=== PATIENT | male | born 1985 | race Caucasian/White ===

== ENCOUNTER 2020-09-06 15:37 | Observation (INO) | payer BC ==
[~2020-09-06] VITALS: Ht 170.2 cm; Wt 77.1 kg
[~2020-09-06 15:37] MED LIST: DEXT1CAP PO; DIVA500T2 PO; FOLI1TAB16 PO; THIA100T22 PO
[2020-09-06 16:05] LABS: BASO % 1 % (0-3); EOS % 0 % (0-3); HEMOGLOBIN 14.3 g/dL (13.0-17.5); LYMPH # 1.5 x10^3/uL (1.0-4.8); LYMPH % 24 % (24-48); MEAN CORPUSCULAR HEMOGLOBIN 33 pg (25-35); MEAN CORPUSCULAR HGB CONC 34 g/dL (31-37); MEAN CORPUSCULAR VOLUME 96 fL (79-100); MONO # 0.4 x10^3/uL (0.0-1.1); MONO % 7 % (0-9); NEUT # 4.1 x10^3/uL (1.8-7.7); NEUT % 67 % (31-73); PLATELET COUNT 313 x10^3/uL (140-400); RED CELL DISTRIBUTION WIDTH 12.9 % (11.5-14.5); WHITE BLOOD COUNT 6.1 x10^3/uL (4.0-11.0)
[2020-09-06 16:19] LABS: ANION GAP 16 (6-14); BLOOD UREA NITROGEN 12 mg/dL (8-26); BUN/CREATININE RATIO 12 (6-20); CALCIUM 9.1 mg/dL (8.5-10.1); CARBON DIOXIDE 22 mmol/L (21-32); CHLORIDE 108 mmol/L (98-107); GLUCOSE 107 mg/dL (70-99); SODIUM 146 mmol/L (136-145)
--- NOTE | 2020-09-06 16:23 | PHYS DOC ---
Past Medical History Past Medical History: Seizure Additional Past Medical Histor: TBI, (SURESHRAQUEL M DISTILLERY MILLER) Past Surgical History: Other Additional Past Surgical Histo: CRICH (SURESHRAQUEL DISTILLERY MILLER) Smoking Status: Never Smoker Alcohol Use: Occasionally Drug Use: Marijuana (SURESHRAQUEL DISTILLERY MILLER) General Adult EDM: Chief Complaint: SEIZURE HPI: HPI: Patient is a 34 year old male who presents with brought in by EMS for seizure. Witnessed by father. Patient has a history of a TBI seizures and states he takes his Depakote every morning. Patient states that he has a seizure about every 6 months. The father states that he has a seizure about once a year. EMS states there was a lot of drug paraphernalia and open alcohol containers in the house. Patient denies use. Patient did urinate on himself. Patient is a poor historian. Patient states it is 2019 and he thinks is just about November. EMS nor we are aware of his normal mental status. He is alert and oriented to self. Patient states he is feeling fine and he is actually ready to go home. He denies any pain, headache, and nausea, vomiting, dizziness, abdominal pain, neck pain, vision changes, numbness or tingling, chest pain, shortness of air, recent illness, fevers. He states he does not think he hit his head. It is unclear if he fell or was going down when he had a seizure. (SARAHRAQUEL DISTILLERY MILLER) Review of Systems: Review of Systems: Constitutional: Denies fever or chills. [] Eyes: Denies change in visual acuity. [] HENT: Denies nasal congestion or sore throat. [] Respiratory: Denies cough or shortness of breath. [] Cardiovascular: Denies chest pain or edema. [] GI: Denies abdominal pain, nausea, vomiting, bloody stools or diarrhea. [] : Denies dysuria. [] Musculoskeletal: Denies back pain or joint pain. [] Integument: Denies rash. [] Neurologic: Denies headache, focal weakness or sensory changes. +Seizure[] Endocrine: Denies polyuria or polydipsia. [] Lymphatic: Denies swollen glands. [] Psychiatric: Denies depression or anxiety. [] (RAQUEL PRINCE DISTILLERY MILLER) Heart Score: Risk Factors: Risk Factors: DM, Current or recent (<one month) smoker, HTN, HLP, family history of CAD, obesity. Risk Scores: Score 0 - 3: 2.5% MACE over next 6 weeks - Discharge Home Score 4 - 6: 20.3% MACE over next 6 weeks - Admit for Clinical Observation Score 7 - 10: 72.7% MACE over next 6 weeks - Early Invasive Strategies (RAQUEL PRINCE APRN) Current Medications: Current Medications Medications (Trade) Dose Ordered Sig/Aakash Start Time Stop Time Status Last Admin Dose Admin Sodium Chloride 1,000 ml @ 1,000 mls/hr 1X ONCE 09/06/20 16:30 09/06/20 17:29 (RAQUEL PRINCE APRN) Allergies: Allergies: Allergies Coded Allergies Type Severity Reaction Last Updated Verified No Known Drug Allergies 09/05/18 No (RAQUEL PRINCE APRN) Physical Exam: PE: Constitutional: Well developed, well nourished, no acute distress, non-toxic appearance. [] HENT: Normocephalic, atraumatic, bilateral external ears normal, oropharynx moist, no oral exudates, nose normal. [] Eyes: PERRLA, EOMI, conjunctiva normal, no discharge. [] Neck: Normal range of motion, no tenderness, supple, no stridor. [] Cardiovascular:Heart rate regular rhythm, no murmur [] Lungs & Thorax: Bilateral breath sounds clear to auscultation [] Abdomen: Bowel sounds normal, soft, no tenderness, no masses, no pulsatile masses. [] Skin: Warm, dry, no erythema, no rash. [] Back: No tenderness, no CVA tenderness. [] Extremities: No tenderness, no cyanosis, no clubbing, ROM intact, no edema. [] Neurologic: Alert and oriented X 1, normal motor function, normal sensory function, no focal deficits noted. [] Psychologic: Affect normal, judgement normal, mood normal. [] (RAQUEL PRINCE APRN) Current Patient Data: Labs: Laboratory Tests Test 09/06/20 15:41 White Blood Count 6.1 x10^3/uL (4.0-11.0) Red Blood Count 4.40 x10^6/uL (4.30-5.70) Hemoglobin 14.3 g/dL (13.0-17.5) Hematocrit 42.0 % (39.0-53.0) Mean Corpuscular Volume 96 fL (79-100) Mean Corpuscular Hemoglobin 33 pg (25-35) Mean Corpuscular Hemoglobin Concent 34 g/dL (31-37) Red Cell Distribution Width 12.9 % (11.5-14.5) Platelet Count 313 x10^3/uL (140-400) Neutrophils (%) (Auto) 67 % (31-73) Lymphocytes (%) (Auto) 24 % (24-48) Monocytes (%) (Auto) 7 % (0-9) Eosinophils (%) (Auto) 0 % (0-3) Basophils (%) (Auto) 1 % (0-3) Neutrophils # (Auto) 4.1 x10^3/uL (1.8-7.7) Lymphocytes # (Auto) 1.5 x10^3/uL (1.0-4.8) Monocytes # (Auto) 0.4 x10^3/uL (0.0-1.1) Eosinophils # (Auto) 0.0 x10^3/uL (0.0-0.7) Basophils # (Auto) 0.0 x10^3/uL (0.0-0.2) Ethyl Alcohol Level < 10 mg/dL (0-10) Laboratory Tests 09/06/20 15:41 Vital Signs: Vital Signs Date Time Temp Pulse Resp B/P (MAP) Pulse Ox O2 Delivery O2 Flow Rate FiO2 09/06/20 15:38 98.2 90 16 136/85 (102) 94 Room Air 98.2 (RAQUEL PRINCE DISTILLERY MILLER) EKG: EK and read by Sinus Rhythm and no STEMI (RAQUEL PRINCE DISTILLERY MILLER) Radiology/Procedures: Radiology/Procedures: [] Impression: [facility] [address] [place] [address] IMAGING REPORT Signed PATIENT: ALBERTA BARNES ACCOUNT: [id number] : 1985 LOCATION: ER AGE: 34 SEX: M EXAM STATUS: REG ER ORD. PHYSICIAN: RAQUEL PRINCE APRN REASON: seizure, fall PROCEDURE: CT HEAD AND CERVICAL SPINE WO Exam: CT head and cervical spine without contrast INDICATION: Seizure, fall TECHNIQUE: Sequential axial images through the head and cervical spine were obtained without the administration of IV contrast. Comparisons: None FINDINGS: Head: No focal parenchymal lesion or hemorrhage is identified. There is no midline shift or sulcal effacement. Hypodensity in the right frontal lobe favored to be chronic infarct. No acute vascular territory infarction is identified. Elliott-white distinction is preserved. The ventricular system is within normal limits without compression hydrocephalus. The basal cisterns are well maintained. The visualized portions of the paranasal sinuses and mastoid air cells are well- pneumatized. No acute fractures. Cervical spine: Straightening of cervical spine which may positional. Vertebral body heights are well-maintained. Fracture to the cervical spine is not identified. Multilevel spondylotic change in cervical spine with degenerative disc disease greatest at C3-C4. Visualized paraspinal soft tissues are unremarkable. IMPRESSION: 1. No acute intracranial abnormality. 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 2. Negative CT C-spine for acute traumatic injury. Exposure: One or more of the following in the visualized dose reduction techniques were utilized for this examination: 1. Automated exposure control 2. Adjustment of the MA and/or KV according to patient size Use of iterative of reconstructive technique Electronically signed by: Benito Ernandez MD (09/06/2020 5:31 PM) [facility] DICTATED and SIGNED BY: BENITO ERNANDEZ MD DATE: 09/06/20 [id number] (RAQUEL PRINCE APRN) Course & Med Decision Making: Course & Med Decision Making Pertinent Labs and Imaging studies reviewed. (See chart for details) See HPI. Alert and oriented x self. Speaks in full clear sentences. Lungs are clear to auscultation all lobes. Vital signs are within normal limits. Afebrile. No focal bony spinal tenderness. Full range of motion of his neck. Skin pink warm and dry. Abdomen soft and nontender. No extremity swelling, joint laxity, deformities, abrasions, lacerations, bruising. Patient was given 2 L of normal saline in the ER. Nurse spoke to the patient's father who states the patient is alert and oriented x4, therefore the patient is altered. Patient's father states that he did not vomit. Patient's father states that he was found on the floor so the seizure was unwitnessed. Blood work is unremarkable besides a lactic acid being 5.0. CT head and cervical sp ine show no acute findings. There is concern for prolonged postictal state therefore patient will be observed in the hospital. Patient admitted to the hospitalist. [] (RAQUEL PRINCE APRN) Dragon Disclaimer: Dragon Disclaimer: This electronic medical record was generated, in whole or in part, using a voice recognition dictation system. (RAQUEL PRINCE APRN) Departure Departure Impression: Primary Impression: AMS (altered mental status) Qualified Codes: R41.82 - Altered mental status, unspecified Disposition: ADMITTED INPT THIS HOSP Admitting Physician: JENNIFER (RAQUEL PRINCE APRN) Condition: STABLE Referrals: NO PCP (PCP) Attending Signature Attending Signature I have reviewed the PA/CABLE SPOOLER's note and plan of care. I was available for consultation as needed during the patient's visit in the emergency department. I agree with the clinical impression, plan, and disposition. (ALBERTA HEARD DO) RAQUEL PRINCE APRN Sep 06, 2020 16:23 ALBERTA HEARD DO Sep 07, 2020 08:03
[2020-09-06 16:24] LABS: ALBUMIN 3.6 g/dL (3.4-5.0); ALBUMIN/GLOBULIN RATIO 1.1 (1.0-1.7); ALK PHOS 39 U/L (46-116); ALT (SGPT) 31 U/L (16-63); AST (SGOT) 15 U/L (15-37); TOTAL BILIRUBIN 0.3 mg/dL (0.2-1.0); TOTAL PROTEIN 6.9 g/dL (6.4-8.2)
[2020-09-06] MEDS ORDERED: IV NORMAL SALINE 1000ML BAG 1,000 ML IV ONE ×2 (16:30→17:15)
--- NOTE | 2020-09-06 17:13 | EKG ---
[address] [place] [address] Test Date: 2020-09-06 Test Time: 16:12:17 Pat Name: ALBERTA BARNES Department: Room: Gender: M Community Organization Director: : 1985 Requested By: RAQUEL PRINCE Order Number: [id number] Reading MD: Avi Zhou Measurements Intervals [place] Rate: 93 P: 48 IN: 158 QRS: 12 QRSD: 106 T: 43 QT: 346 QTc: 433 Interpretive Statements SINUS RHYTHM NORMAL ECG Electronically Signed On 09-09-2020 10:21:45 MORTGAGE LOAN ASSISTANT by Avi Zhou
--- NOTE | 2020-09-06 17:33 | RAD ---
Exam: CT head and cervical spine without contrast INDICATION: Seizure, fall TECHNIQUE: Sequential axial images through the head and cervical spine were obtained without the admi nistration of IV contrast. Comparisons: None FINDINGS: Head: No focal parenchymal lesion or hemorrhage is identified. There is no midline shift or sulcal effaceme nt. Hypodensity in the right frontal lobe favored to be chronic infarct. No acute vascular territory infa rction is identified. Elliott-white distinction is preserved. The ventricular system is within normal limits without compression hydrocephalus. The basal cisterns are well maintained. The visualized portions of the paranasal sinuses and mastoid air cells are well-pneumatized. No acute fractures. Cervical spine: Straightening of cervical spine which may positional. Vertebral body heights are well-maintained. Fracture to the cervical spine is not identified. Multilevel spondylotic change in cervical spine with degenerative disc disease greatest at C3-C4. Visualized paraspinal soft tissues are unremarkable. IMPRESSION: 1. No acute intracranial abnormality. 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 2. Negative CT C-spine for acute traumatic injury. Exposure: One or more of the following in the visualized dose reduction techniques were utilized for this examination: 1. Automated exposure control 2. Adjustment of the MA and/or KV according to patient size Use of iterative of reconstructive technique Electronically signed by: Benito Lutz MD (09/06/2020 5:31 PM) [facility]
[2020-09-06 18:34] LABS: BARBITURATES NEG (NEG); BENZODIAZEPINES NEG (NEG); CANNABINOIDS POS (NEG); COCAINE NEG (NEG); METHADONE NEG (NEG); OPIATES NEG (NEG); PHENCYCLIDINE NEG (NEG)
[2020-09-06 18:35] LABS: AMPHETAMINE/METHAMPHETAMINE NEG (NEG)
[2020-09-06] MEDS ORDERED: PROCHLORPERAZINE 25 MG SUPP.RECT. PR PRN (19:15)
[2020-09-06] MEDS ORDERED: ACETAMINOPHEN 325 MG TABLET. PO PRN (19:15)
[2020-09-06] MEDS ORDERED: BISACODYL 10 MG SUPP.RECT. PR PRN (19:15)
[2020-09-06] MEDS ORDERED: ONDANSETRON PF 4 MG/2 ML VIAL. IVP PRN (19:15)
[2020-09-06] MEDS ORDERED: CALCIUM CARBONATE 500 MG TAB.CHEW PO PRN (19:15)
[2020-09-06] MEDS ORDERED: LACTULOSE 20 GM/30 ML SOLUTION. PO PRN (19:15)
[2020-09-06] MEDS ORDERED: ELECTROLYTE (NON-ICU) PROTOCOL. MC PRN (19:15)
[2020-09-06] MEDS ORDERED: ZOLPIDEM 5 MG TABLET. PO PRN (19:15)
[2020-09-06] MEDS ORDERED: HYDROcodone/APAP 5/325MG 1 TAB TABLET PO PRN (19:15)
[2020-09-06] MEDS ORDERED: MORPHINE SULFATE 2 MG/ML VIAL. IV PRN (19:15)
[2020-09-06] MEDS ORDERED: IV RINGERS,LACTATED 1000ML 1,000 ML IV SCH (19:15)
[2020-09-06] MEDS ORDERED: ENOXAPARIN 40 MG/0.4 ML SYRINGE. SQ SCH (20:00)
[2020-09-06 20:45] VITALS: BP 140/87
[2020-09-06] MEDS: SENNOSIDES/DOCUSATE 8.6/50MG TABLET. PO SCH (21:33)
[2020-09-06] MEDS: DOCUSATE SODIUM 100 MG CAPSULE. PO SCH (21:33)
[2020-09-06 23:00] VITALS: BP 123/77
[2020-09-06 23:09] LABS: VAL ACID 26 mcg/mL (50-100)
[2020-09-06] MEDS ORDERED: DIVALPROEX DELAYED RELEASE 500 MG TABLET.DR. PO ONE (23:15)
[2020-09-07 03:00] VITALS: BP 125/76
[2020-09-07 07:25] VITALS: BP 123/78
[2020-09-07] MEDS: DOCUSATE SODIUM 100 MG CAPSULE. PO SCH (08:08)
[2020-09-07] MEDS: SENNOSIDES/DOCUSATE 8.6/50MG TABLET. PO SCH (08:08)
[2020-09-07 08:41] LABS: BASO # 0.1 x10^3/uL (0.0-0.2); BASO % 1 % (0-3); EOS # 0.1 x10^3/uL (0.0-0.7); EOS % 2 % (0-3); HEMATOCRIT 37.7 % (39.0-53.0); HEMOGLOBIN 13.1 g/dL (13.0-17.5); LYMPH # 2.1 x10^3/uL (1.0-4.8); LYMPH % 34 % (24-48); MEAN CORPUSCULAR HEMOGLOBIN 33 pg (25-35); MEAN CORPUSCULAR HGB CONC 35 g/dL (31-37); MEAN CORPUSCULAR VOLUME 95 fL (79-100); MONO # 0.5 x10^3/uL (0.0-1.1); MONO % 8 % (0-9); NEUT # 3.4 x10^3/uL (1.8-7.7); NEUT % 55 % (31-73); PLATELET COUNT 267 x10^3/uL (140-400); RED BLOOD COUNT 3.95 x10^6/uL (4.30-5.70); RED CELL DISTRIBUTION WIDTH 12.7 % (11.5-14.5); WHITE BLOOD COUNT 6.2 x10^3/uL (4.0-11.0)
[2020-09-07] MEDS ORDERED: FLU VACC QS 2020-21(6MOS+)/PF 0.5 ML SYRINGE. VAX IM ONE (09:00)
[2020-09-07 09:06] LABS: CALCIUM 8.4 mg/dL (8.5-10.1); CREATININE 0.9 mg/dL (0.7-1.3); POTASSIUM 3.2 mmol/L (3.5-5.1)
[2020-09-07] MEDS ORDERED: DIVA250T4 PO (10:26)
--- NOTE | 2020-09-07 10:26 | DISCH ---
DISCHARGE INSTRUCTIONS Condition on Discharge Condition on Discharge: Stable Activity After Discharge Activity Instructions for Disc: Activity as tolerated Lifting Instructions after Dis: No heavy lifting Exercise Instruction after Dis: Progress as tolerated Driving Instructions after Dis: No driving for 6 months Weight Bearing Status after Di: No restrictions Diet after Discharge Diet after Discharge: Regular Diet Texture: Regular SUMMER CRANDALL MD Sep 07, 2020 10:26
[2020-09-07] MEDS ORDERED: DIVALPROEX DELAYED RELEASE 500 MG TABLET.DR. PO ONE (10:30)
--- NOTE | 2020-09-07 10:45 | PDOC ---
GENERAL General: Same day summary [id number] VITAL SIGNS Vital Signs/I&O: Vital Signs Date Time Temp Pulse Resp B/P (MAP) Pulse Ox O2 Delivery O2 Flow Rate FiO2 09/07/20 07:25 98.3 76 18 123/78 (93) 97 Room Air 98.3 I & O 09/06/20 09/06/20 09/07/20 15:00 23:00 07:00 Intake Total 2000 ml Output Total 0 ml 0 ml Balance 2000 ml 0 ml ALLERGIES Allergies: Allergies Coded Allergies Type Severity Reaction Last Updated Verified No Known Drug Allergies 09/05/18 No MEDS Medications: Current Medications Medications (Trade) Dose Ordered Sig/Aakash Route PRN Reason Start Time Stop Time Status Last Admin Dose Admin Sodium Chloride 1,000 ml @ 1,000 mls/hr 1X ONCE IV 09/06/20 16:30 09/06/20 17:29 DC 09/06/20 16:30 Sodium Chloride 1,000 ml @ 1,000 mls/hr 1X ONCE IV 09/06/20 17:15 09/06/20 18:14 DC 09/06/20 17:30 Ringer's Solution 1,000 ml @ 100 mls/hr Q10H IV 09/06/20 19:15 09/07/20 05:14 DC 09/06/20 21:33 Senna/Docusate Sodium (Senna Plus) 1 tab BID PO 09/06/20 21:00 09/06/20 21:33 Docusate Sodium (Colace) 100 mg BID PO 09/06/20 21:00 09/06/20 21:33 Enoxaparin Sodium (Lovenox 40mg Syringe) 40 mg Q24H SQ 09/06/20 20:00 09/06/20 21:34 Influenza Virus Vaccine Quadrival (Fluzone Quad 7182-5331 Syringe) 0.5 ml ONCE ONCE VAX IM 09/07/20 09:00 09/07/20 09:01 DC 09/07/20 08:06 Divalproex Sodium (Depakote) 500 mg 1X ONCE PO 09/06/20 23:15 09/06/20 23:16 DC 09/07/20 00:13 LAB Lab: Laboratory Tests Test 09/06/20 15:41 09/06/20 18:16 09/06/20 20:09 09/07/20 07:34 White Blood Count 6.1 x10^3/uL (4.0-11.0) 6.2 x10^3/uL (4.0-11.0) Red Blood Count 4.40 x10^6/uL (4.30-5.70) 3.95 x10^6/uL (4.30-5.70) L Hemoglobin 14.3 g/dL (13.0-17.5) 13.1 g/dL (13.0-17.5) Hematocrit 42.0 % (39.0-53.0) 37.7 % (39.0-53.0) L Mean Corpuscular Volume 96 fL (79-100) 95 fL (79-100) Mean Corpuscular Hemoglobin 33 pg (25-35) 33 pg (25-35) Mean Corpuscular Hemoglobin Concent 34 g/dL (31-37) 35 g/dL (31-37) Red Cell Distribution Width 12.9 % (11.5-14.5) 12.7 % (11.5-14.5) Platelet Count 313 x10^3/uL (140-400) 267 x10^3/uL (140-400) Neutrophils (%) (Auto) 67 % (31-73) 55 % (31-73) Lymphocytes (%) (Auto) 24 % (24-48) 34 % (24-48) Monocytes (%) (Auto) 7 % (0-9) 8 % (0-9) Eosinophils (%) (Auto) 0 % (0-3) 2 % (0-3) Basophils (%) (Auto) 1 % (0-3) 1 % (0-3) Neutrophils # (Auto) 4.1 x10^3/uL (1.8-7.7) 3.4 x10^3/uL (1.8-7.7) Lymphocytes # (Auto) 1.5 x10^3/uL (1.0-4.8) 2.1 x10^3/uL (1.0-4.8) Monocytes # (Auto) 0.4 x10^3/uL (0.0-1.1) 0.5 x10^3/uL (0.0-1.1) Eosinophils # (Auto) 0.0 x10^3/uL (0.0-0.7) 0.1 x10^3/uL (0.0-0.7) Basophils # (Auto) 0.0 x10^3/uL (0.0-0.2) 0.1 x10^3/uL (0.0-0.2) Sodium Level 146 mmol/L (136-145) H 142 mmol/L (136-145) Potassium Level 4.0 mmol/L (3.5-5.1) 3.2 mmol/L (3.5-5.1) L Chloride Level 108 mmol/L (98-107) H 105 mmol/L (98-107) Carbon Dioxide Level 22 mmol/L (21-32) 28 mmol/L (21-32) Anion Gap 16 (6-14) H 9 (6-14) Blood Urea Nitrogen 12 mg/dL (8-26) 12 mg/dL (8-26) Creatinine 1.0 mg/dL (0.7-1.3) 0.9 mg/dL (0.7-1.3) Estimated GFR (Cockcroft-Gault) 85.0 96.0 BUN/Creatinine Ratio 12 (6-20) Glucose Level 107 mg/dL (70-99) H 98 mg/dL (70-99) Lactic Acid Level 5.0 mmol/L (0.4-2.0) *H 1.0 mmol/L (0.4-2.0) Calcium Level 9.1 mg/dL (8.5-10.1) 8.4 mg/dL (8.5-10.1) L Total Bilirubin 0.3 mg/dL (0.2-1.0) Aspartate Amino Transferase (AST) 15 U/L (15-37) Alanine Aminotransferase (ALT) 31 U/L (16-63) Alkaline Phosphatase 39 U/L (46-116) L Total Protein 6.9 g/dL (6.4-8.2) Albumin 3.6 g/dL (3.4-5.0) Albumin/Globulin Ratio 1.1 (1.0-1.7) Valproic Acid Level 26 mcg/mL (50-100) L Valproic Acid Last Dose Date Valproic Acid Last Dose Time Ethyl Alcohol Level < 10 mg/dL (0-10) Urine Opiates Screen Neg (NEG) Urine Methadone Screen Neg (NEG) Urine Barbiturates Neg (NEG) Urine Phencyclidine Screen Neg (NEG) Urine Amphetamine/Methamphetamine Neg (NEG) Urine Benzodiazepines Screen Neg (NEG) Urine Cocaine Screen Neg (NEG) Urine Cannabinoids Screen Pos (NEG) Urine Ethyl Alcohol Neg (NEG) Laboratory Tests 09/06/20 15:41 09/07/20 07:34 Laboratory Tests 09/06/20 15:41 09/07/20 07:34 Justifications for Admission Other Justification SUMMER CRANDALL MD Sep 07, 2020 10:45
[2020-09-07 11:14] VITALS: BP 136/75
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
--- NOTE | 2020-09-07 12:52 | PDOC2 ---
NEUROLOGY CONSULT Date of Service DOS: Consult received this AM at 0723. Patient discharged prior my arrival at 1250. Unable to complete consult. Not notified of impending discharge. DATE: 09/07/20 TIME: 12:50 Current Medications Current Medications Current Medications Sodium Chloride 1,000 ml @ 1,000 mls/hr 1X ONCE IV Last administered on 09/06/20at 16:30; Start 09/06/20 at 16:30; Stop 09/06/20 at 17:29; Status DC Sodium Chloride 1,000 ml @ 1,000 mls/hr 1X ONCE IV Last administered on 09/06/20at 17:30; Start 09/06/20 at 17:15; Stop 09/06/20 at 18:14; Status DC Ringer's Solution 1,000 ml @ 100 mls/hr Q10H IV Last administered on 09/06/20at 21:33; Start 09/06/20 at 19:15; Stop 09/07/20 at 05:14; Status DC Ondansetron HCl (Zofran) 4 mg PRN Q6HRS PRN IVP NAUSEA/VOMITING; Start 09/06/20 at 19:15 Prochlorperazine (Compazine) 25 mg PRN Q12HR PRN AL NAUSEA/VOMITING; Start 09/06/20 at 19:15 Calcium Carbonate/ Glycine (Tums) 500 mg PRN Q3HRS PRN PO UPSET STOMACH; Start 09/06/20 at 19:15 Zolpidem Tartrate (Ambien) 5 mg PRN QHS PRN PO INSOMNIA, MAY REPEAT IN 1HR; Start 09/06/20 at 19:15 Info (Non-Icu Electrolyte Protocol) 1 ea PRN DAILY PRN MC SEE COMMENTS; Start 09/06/20 at 19:15 Morphine Sulfate (Morphine Sulfate) 1 mg PRN Q1HR PRN IV PAIN-SEE COMMENTS; Start 09/06/20 at 19:15 Acetaminophen/ Hydrocodone Bitart (Lortab 5/325) 1 tab PRN Q4HRS PRN PO MILD PAIN 1-3; Start 09/06/20 at 19:15 Acetaminophen (Tylenol) 650 mg PRN Q6HRS PRN PO Headaches, Temp > 101.5F; Start 09/06/20 at 19:15 Senna/Docusate Sodium (Senna Plus) 1 tab BID PO Last administered on 09/06/20at 21:33; Start 09/06/20 at 21:00 Docusate Sodium (Colace) 100 mg BID PO Last administered on 09/06/20at 21:33; Start 09/06/20 at 21:00 Lactulose (Lactulose) 20 gm PRN Q12HR PRN PO CONSTIPATION; Start 09/06/20 at 19:15 Bisacodyl (Dulcolax Supp) 10 mg PRN DAILY PRN AL CONSTIPATION; Start 09/06/20 at 19:15 Enoxaparin Sodium (Lovenox 40mg Syringe) 40 mg Q24H SQ Last administered on 09/06/20at 21:34; Start 09/06/20 at 20:00 Influenza Virus Vaccine Quadrival (Fluzone Quad Syringe) 0.5 ml ONCE ONCE VAX IM Last administered on 09/07/20at 08:06; Start 09/07/20 at 09:00; Stop 09/07/20 at 09:01; Status DC Divalproex Sodium (Depakote) 500 mg 1X ONCE PO Last administered on 09/07/20at 00:13; Start 09/06/20 at 23:15; Stop 09/06/20 at 23:16; Status DC Divalproex Sodium (Depakote) 1,000 mg 1X ONCE PO Last administered on 09/07/20at 10:35; Start 09/07/20 at 10:30; Stop 09/07/20 at 10:31; Status DC Divalproex Sodium (Depakote) 750 mg BID PO ; Start 09/07/20 at 21:00 Active Scripts Active Depakote (Divalproex Sodium) 250 Mg Tablet.dr 750 Mg PO BID 30 Days 3 tablets PO twice daily Vitamin B-1 (Thiamine Mononitrate) 100 Mg Tablet 100 Mg PO DAILY 30 Days Folic Acid 1 Mg Tablet 1 Mg PO DAILY 30 Days Reported Nuedexta 20-10 Mg Capsule (Dextromethorphan Hbr/Quinidine) 1 Each Capsule 1 Each PO DAILY Allergies Allergies: Coded Allergies: No Known Drug Allergies (Unverified , 09/05/18) Vitals VITALS Vital Signs Date Time Temp Pulse Resp B/P (MAP) Pulse Ox O2 Delivery O2 Flow Rate FiO2 09/07/20 11:14 98.1 60 18 136/75 (95) 97 Room Air 98.1 Labs Labs Laboratory Tests Test 09/06/20 15:41 09/06/20 18:16 09/06/20 20:09 09/07/20 07:34 White Blood Count 6.1 x10^3/uL (4.0-11.0) 6.2 x10^3/uL (4.0-11.0) Red Blood Count 4.40 x10^6/uL (4.30-5.70) 3.95 x10^6/uL (4.30-5.70) Hemoglobin 14.3 g/dL (13.0-17.5) 13.1 g/dL (13.0-17.5) Hematocrit 42.0 % (39.0-53.0) 37.7 % (39.0-53.0) Mean Corpuscular Volume 96 fL (79-100) 95 fL (79-100) Mean Corpuscular Hemoglobin 33 pg (25-35) 33 pg (25-35) Mean Corpuscular Hemoglobin Concent 34 g/dL (31-37) 35 g/dL (31-37) Red Cell Distribution Width 12.9 % (11.5-14.5) 12.7 % (11.5-14.5) Platelet Count 313 x10^3/uL (140-400) 267 x10^3/uL (140-400) Neutrophils (%) (Auto) 67 % (31-73) 55 % (31-73) Lymphocytes (%) (Auto) 24 % (24-48) 34 % (24-48) Monocytes (%) (Auto) 7 % (0-9) 8 % (0-9) Eosinophils (%) (Auto) 0 % (0-3) 2 % (0-3) Basophils (%) (Auto) 1 % (0-3) 1 % (0-3) Neutrophils # (Auto) 4.1 x10^3/uL (1.8-7.7) 3.4 x10^3/uL (1.8-7.7) Lymphocytes # (Auto) 1.5 x10^3/uL (1.0-4.8) 2.1 x10^3/uL (1.0-4.8) Monocytes # (Auto) 0.4 x10^3/uL (0.0-1.1) 0.5 x10^3/uL (0.0-1.1) Eosinophils # (Auto) 0.0 x10^3/uL (0.0-0.7) 0.1 x10^3/uL (0.0-0.7) Basophils # (Auto) 0.0 x10^3/uL (0.0-0.2) 0.1 x10^3/uL (0.0-0.2) Sodium Level 146 mmol/L (136-145) 142 mmol/L (136-145) Potassium Level 4.0 mmol/L (3.5-5.1) 3.2 mmol/L (3.5-5.1) Chloride Level 108 mmol/L (98-107) 105 mmol/L (98-107) Carbon Dioxide Level 22 mmol/L (21-32) 28 mmol/L (21-32) Anion Gap 16 (6-14) 9 (6-14) Blood Urea Nitrogen 12 mg/dL (8-26) 12 mg/dL (8-26) Creatinine 1.0 mg/dL (0.7-1.3) 0.9 mg/dL (0.7-1.3) Estimated GFR (Cockcroft-Gault) 85.0 96.0 BUN/Creatinine Ratio 12 (6-20) Glucose Level 107 mg/dL (70-99) 98 mg/dL (70-99) Lactic Acid Level 5.0 mmol/L (0.4-2.0) 1.0 mmol/L (0.4-2.0) Calcium Level 9.1 mg/dL (8.5-10.1) 8.4 mg/dL (8.5-10.1) Total Bilirubin 0.3 mg/dL (0.2-1.0) Aspartate Amino Transf (AST/SGOT) 15 U/L (15-37) Alanine Aminotransferase (ALT/SGPT) 31 U/L (16-63) Alkaline Phosphatase 39 U/L (46-116) Total Protein 6.9 g/dL (6.4-8.2) Albumin 3.6 g/dL (3.4-5.0) Albumin/Globulin Ratio 1.1 (1.0-1.7) Valproic Acid (Depakene) Level 26 mcg/mL (50-100) Valproic Acid Last Dose Date Valproic Acid Last Dose Time Ethyl Alcohol Level < 10 mg/dL (0-10) Urine Opiates Screen Neg (NEG) Urine Methadone Screen Neg (NEG) Urine Barbiturates Neg (NEG) Urine Phencyclidine Screen Neg (NEG) Urine Amphetamine/Methamphetamine Neg (NEG) Urine Benzodiazepines Screen Neg (NEG) Urine Cocaine Screen Neg (NEG) Urine Cannabinoids Screen Pos (NEG) Urine Ethyl Alcohol Neg (NEG) Laboratory Tests Test 09/06/20 15:41 09/06/20 18:16 09/06/20 20:09 09/07/20 07:34 White Blood Count 6.1 x10^3/uL (4.0-11.0) 6.2 x10^3/uL (4.0-11.0) Red Blood Count 4.40 x10^6/uL (4.30-5.70) 3.95 x10^6/uL (4.30-5.70) Hemoglobin 14.3 g/dL (13.0-17.5) 13.1 g/dL (13.0-17.5) Hematocrit 42.0 % (39.0-53.0) 37.7 % (39.0-53.0) Mean Corpuscular Volume 96 fL (79-100) 95 fL (79-100) Mean Corpuscular Hemoglobin 33 pg (25-35) 33 pg (25-35) Mean Corpuscular Hemoglobin Concent 34 g/dL (31-37) 35 g/dL (31-37) Red Cell Distribution Width 12.9 % (11.5-14.5) 12.7 % (11.5-14.5) Platelet Count 313 x10^3/uL (140-400) 267 x10^3/uL (140-400) Neutrophils (%) (Auto) 67 % (31-73) 55 % (31-73) Lymphocytes (%) (Auto) 24 % (24-48) 34 % (24-48) Monocytes (%) (Auto) 7 % (0-9) 8 % (0-9) Eosinophils (%) (Auto) 0 % (0-3) 2 % (0-3) Basophils (%) (Auto) 1 % (0-3) 1 % (0-3) Neutrophils # (Auto) 4.1 x10^3/uL (1.8-7.7) 3.4 x10^3/uL (1.8-7.7) Lymphocytes # (Auto) 1.5 x10^3/uL (1.0-4.8) 2.1 x10^3/uL (1.0-4.8) Monocytes # (Auto) 0.4 x10^3/uL (0.0-1.1) 0.5 x10^3/uL (0.0-1.1) Eosinophils # (Auto) 0.0 x10^3/uL (0.0-0.7) 0.1 x10^3/uL (0.0-0.7) Basophils # (Auto) 0.0 x10^3/uL (0.0-0.2) 0.1 x10^3/uL (0.0-0.2) Sodium Level 146 mmol/L (136-145) 142 mmol/L (136-145) Potassium Level 4.0 mmol/L (3.5-5.1) 3.2 mmol/L (3.5-5.1) Chloride Level 108 mmol/L (98-107) 105 mmol/L (98-107) Carbon Dioxide Level 22 mmol/L (21-32) 28 mmol/L (21-32) Anion Gap 16 (6-14) 9 (6-14) Blood Urea Nitrogen 12 mg/dL (8-26) 12 mg/dL (8-26) Creatinine 1.0 mg/dL (0.7-1.3) 0.9 mg/dL (0.7-1.3) Estimated GFR (Cockcroft-Gault) 85.0 96.0 BUN/Creatinine Ratio 12 (6-20) Glucose Level 107 mg/dL (70-99) 98 mg/dL (70-99) Lactic Acid Level 5.0 mmol/L (0.4-2.0) 1.0 mmol/L (0.4-2.0) Calcium Level 9.1 mg/dL (8.5-10.1) 8.4 mg/dL (8.5-10.1) Total Bilirubin 0.3 mg/dL (0.2-1.0) Aspartate Amino Transf (AST/SGOT) 15 U/L (15-37) Alanine Aminotransferase (ALT/SGPT) 31 U/L (16-63) Alkaline Phosphatase 39 U/L (46-116) Total Protein 6.9 g/dL (6.4-8.2) Albumin 3.6 g/dL (3.4-5.0) Albumin/Globulin Ratio 1.1 (1.0-1.7) Valproic Acid (Depakene) Level 26 mcg/mL (50-100) Valproic Acid Last Dose Date Valproic Acid Last Dose Time Ethyl Alcohol Level < 10 mg/dL (0-10) Urine Opiates Screen Neg (NEG) Urine Methadone Screen Neg (NEG) Urine Barbiturates Neg (NEG) Urine Phencyclidine Screen Neg (NEG) Urine Amphetamine/Methamphetamine Neg (NEG) Urine Benzodiazepines Screen Neg (NEG) Urine Cocaine Screen Neg (NEG) Urine Cannabinoids Screen Pos (NEG) Urine Ethyl Alcohol Neg (NEG) SAIGE CRISOSTOMO MD Sep 07, 2020 12:52
--- NOTE | 2020-09-07 13:28 | NUR ---
pt discharged home with family via cab. meds and follow up reviewed. IV removed, cath intact. pt stable upon dc
[2020-09-07] MEDS ORDERED: DIVALPROEX DELAYED RELEASE 250 MG TABLET.DR. PO SCH (21:00)
== END 2020-09-07 13:00 | disposition home or self-care (01) ==
LOC: ER 15:37 → 5 NORTH 19:23
PROVIDERS: ADMIT Internal Medicine; ATTEND Internal Medicine
DX: G40.802 Other epilepsy, not intractable, without status epilepticus (principal); R41.82 Altered mental status, unspecified; F12.90 Cannabis use, unspecified, uncomplicated; S06.9X9S Unspecified intracranial injury with loss of consciousness of unspecified duration, sequela; F17.200 Nicotine dependence, unspecified, uncomplicated; Z23 Encounter for immunization; Z87.820 Personal history of traumatic brain injury; Z91.14 Patient's other noncompliance with medication regimen; X58.XXXS Exposure to other specified factors, sequela
CPT/HCPCS: 36415; 70450; 72125; 80048; 80053; 80164; 80307; 83605; 85025; 90471; 90686; 93005; 96360; 96361; 96372; 99285; G0378; G0480; J1650; J7030; J7120; G0379